=== PATIENT | female | born 1945 | race Two or more races ===

== ENCOUNTER 2022-05-03 19:24 | Emergency (ER) | payer MEDICARE, OTHER ==
[~2022-05-03] VITALS: Ht 162.6 cm; Wt 64.9 kg
--- NOTE | 2022-05-03 19:45 | NUR ---
CALLED TO TRIAGE NO ANSWER
--- NOTE | 2022-05-03 20:00 | NUR ---
CALLED TO TRIAGE NO ANSWER
[2022-05-03 20:38] VITALS: BP 124/70
--- NOTE | 2022-05-03 20:40 | NUR ---
BIBPA FROM CUSTODIAL C/O FEELING WEAK, AND POOR PO INTAKE FOR THE PAST FEW DAYS. PLACED COMFORTABLY IN BED. VITALS CHECKED.
[2022-05-03 21:14] LABS: BASOPHILS % (AUTO) 0.4 % (0.0-2.0); EOSINOPHILS % (AUTO) 1.1 % (0.0-6.0); HEMATOCRIT 36 % (33-45); HEMOGLOBIN 11.6 g/dL (11.5-14.8); LYMPHOCYTES % (AUTO) 36.2 % (20.0-44.0); MEAN CORPUSCULAR HGB CONC 32 g/dl (31.0-36.0); MEAN CORPUSCULAR VOLUME 83 fL (82-100); MONOCYTES # (AUTO) 0.6 K/uL (0.1-1.30); MONOCYTES % (AUTO) 6.9 % (2.0-12.0); NEUTROPHILS # (AUTO) 4.5 K/uL (1.8-8.9); NEUTROPHILS % (AUTO) 55.4 % (43.0-81.0); PLATELET COUNT (AUTO) 231 K/uL (150-450); RED BLOOD CELL COUNT(AUTO) 4.35 MIL/uL (4.0-5.2); WHITE BLOOD COUNT (AUTO) 8.2 K/uL (4.3-11.0)
--- NOTE | 2022-05-03 21:14 | NUR ---
URINE SPECIMEN SENT TO LAB.
[2022-05-03 21:28] LABS: ALBUMIN 3.7 g/dL (3.4-5.0); BILIRUBIN,DIRECT 0.1 mg/dL (0.0-0.2); BILIRUBIN,TOTAL 0.2 mg/dL (0.2-1.0); CALCIUM, SERUM 9.4 mg/dL (8.5-10.1); CREATININE 0.8 mg/dL (0.6-1.3); POTASSIUM 4.2 mmol/L (3.5-5.1); TOTAL PROTEIN, SERUM 7.9 g/dL (6.4-8.2)
[2022-05-03 21:58] LABS: BILIRUBIN,URINE NEGATIVE (NEGATIVE); COLOR,URINE YELLOW (YELLOW); LEUKOCYTE ESTERASE ,URINE SMALL (NEGATIVE); NITRITE, URINE NEGATIVE (NEGATIVE); PH,URINE 6.5 (5.0-8.0); PROTEIN,URINE NEGATIVE (NEGATIVE); UGLUCOSE NEGATIVE (NEGATIVE); UROBILINOGEN,URINE 0.2 EU/dL (0.2)
[2022-05-03 22:04] LABS: BACTERIA,URINE 1+ /HPF (None Seen); RBC,URINE 0-2 /HPF (0-2); SQUAMOUS EPITHELIAL CELL,UR 0-2 /HPF (None Seen)
[2022-05-03] MEDS ORDERED: SULF1TAB48 PO (22:10)
--- NOTE | 2022-05-03 22:34 | NUR ---
[address] [place] [address] [phone]
--- NOTE | 2022-05-03 22:36 | NUR ---
[facility] CALLED FOR BLS BACK HOME PER BENJAMÍN ETA - 1 HOUR
--- NOTE | 2022-05-03 23:05 | NUR ---
CALLED LONG TERM SPOKE WITH DEMETRA, FACILITY DOES NOT WANT TO ACCEPT PT BACK, WANTS MD TO SPEAK TO ADMIN.
--- NOTE | 2022-05-04 00:13 | NUR ---
PATIENT TO BE TAKEN BACK TO FACITILY
--- NOTE | 2022-05-04 00:55 | NUR ---
REPORT GIVEN TO EMT [facility] [address]
--- NOTE | 2022-05-04 00:56 | NUR ---
IV CANNULA REMOVED.
--- NOTE | 2022-05-04 00:57 | NUR ---
Patient discharged to home in stable condition. Written and verbal after care instructions given. Patient verbalizes understanding of instruction.
== END 2022-05-04 01:26 ==
LOC: ER 19:30
DX: R53.1 Weakness (principal); R51.9 Headache, unspecified; R42 Dizziness and giddiness; E11.9 Type 2 diabetes mellitus without complications; Z79.899 Other long term (current) drug therapy
CPT/HCPCS: 36415; 70450-TC; 71045-TC; 80048-TC; 80076-TC; 81001; 84484-TC; 85025-TC; 87086-TC

== ENCOUNTER 2024-04-22 19:43 | Inpatient (IN) | payer MEDICARE, OTHER ==
[~2024-04-22] VITALS: Ht 160 cm; Wt 76.7 kg
[~2024-04-22 19:43] MED LIST: SULF1TAB48 PO
--- NOTE | 2024-04-22 20:05 | NUR ---
CALLED FOR TRIAGE. NO ANSWER
[2024-04-22 20:06] LABS: BASOPHILS % (AUTO) 0.4 % (0.0-2.0); EOSINOPHILS % (AUTO) 0.1 % (0.0-6.0); HEMATOCRIT 33 % (33-45); HEMOGLOBIN 10.6 g/dL (11.5-14.8); LYMPHOCYTES # (AUTO) 1.2 K/uL (0.8-4.8); LYMPHOCYTES % (AUTO) 9.6 % (20.0-44.0); MEAN CORPUSCULAR HEMOGLOBIN 28 PG (26.0-33.0); MEAN CORPUSCULAR HGB CONC 32 g/dl (31.0-36.0); MEAN CORPUSCULAR VOLUME 88 fL (82-100); MONOCYTES # (AUTO) 0.9 K/uL (0.1-1.30); MONOCYTES % (AUTO) 7.8 % (2.0-12.0); NEUTROPHILS # (AUTO) 9.8 K/uL (1.8-8.9); NEUTROPHILS % (AUTO) 82.1 % (43.0-81.0); PLATELET COUNT (AUTO) 187 K/uL (150-450); RED BLOOD CELL COUNT(AUTO) 3.75 MIL/uL (4.0-5.2); RED CELL DISTRIBUTION WIDTH 15.5 % (11.5-15.0)
[2024-04-22 20:14] LABS: CALCIUM, SERUM 9.5 mg/dL (8.5-10.1); CARBON DIOXIDE 25 mmol/L (21-32); CHLORIDE 95 mmol/L (98-107); CREATININE 1.2 mg/dL (0.6-1.3); GLUCOSE 330 mg/dL (74-106); POTASSIUM 4.5 mmol/L (3.5-5.1); SODIUM SERUM 130 mmol/L (136-145); UREA NITROGEN, BLOOD 41 mg/dL (7-18)
[2024-04-22 20:19] LABS: ALANINE AMINOTRANSFERASE 22 U/L (12-78); ALBUMIN 3.7 g/dL (3.4-5.0); ALKALINE PHOSPHATASE 84 U/L (46-116); ASPARTATE AMINOTRANSFERASE 14 U/L (15-37); BILIRUBIN,DIRECT 0.1 mg/dL (0.0-0.2); BILIRUBIN,TOTAL 0.6 mg/dL (0.2-1.0); TOTAL PROTEIN, SERUM 7.4 g/dL (6.4-8.2)
--- NOTE | 2024-04-22 20:44 | NUR ---
BIBDAUGHTER FRM GOLDEN, C/O L HIP PAIN S/P FALL YESTERDAY. L ARM SLING PRESENT ON ARRIVAL. PT IS ALERT AND ORIENTED. RR EVEN AND NON LABORED. NOT AMBULATORY DUE TO HIP PAIN, UNABLE TO BEAR WEIGHT. CONNECTED TO POX AND HEART MONITOR. FAMILY AT BEDSIDE. FALL PRECAUTIONS IN PLACE
--- NOTE | 2024-04-22 20:46 | NUR ---
TECH AT BEDSIDE FOR EKG
--- NOTE | 2024-04-22 20:58 | NUR ---
X RAY AT BEDSIDE
[2024-04-22] MEDS ORDERED: DEXTROSE 50%-WATER 50 ML DISP.SYRIN IV PRN (21:00)
[2024-04-22] MEDS ORDERED: HYDROCODONE/APAP 10/325MG TABLET PO PRN (21:00)
[2024-04-22] MEDS ORDERED: MAG HYDROX/AL HYDROX/SIMETH 30 ML UDC PO PRN (21:00)
[2024-04-22] MEDS ORDERED: MAGNESIUM HYDROXIDE 30 ML UDC PO PRN (21:00)
[2024-04-22] MEDS ORDERED: ONDANSETRON HCL/PF 4 MG/2 ML VIAL IVP PRN (21:00)
--- NOTE | 2024-04-22 21:00 | NUR ---
304 BED 1
--- NOTE | 2024-04-22 21:18 | NUR ---
REPORT GIVEN TO WENDY NEVES
[2024-04-22 21:50] VITALS: BP 108/59; TEMP 98.2; O2SAT 97
--- NOTE | 2024-04-22 22:30 | NUR ---
MS RN ADMITTING NOTE PATIENT ARRIVED IN UNIT AT 2150H WITH EMT AND DAUGHTER. PATIENT IS A/O X 4, KITTITIAN SPEAKING BUT CAN UNDERSTAND BASIC LAO, DAUGHTER AT BEDSIDE HELPS WITH COMMUNICATION. ON 2LPM OXYGEN VIA NASAL CANNULA, BREATHING EVENLY AND NO DISTRESS NOTED. WITH IV ACCESS ON LEFT HAND G#22 SALINE LOCK. ORIENTED TO STAFF AND ROOM. VITAL SIGNS TAKEN AND RECORDED. PATIENT'S BELONGINGS ACCOUNTED FOR. PER DAUGHTER, PATIENT HAS NO WOUNDS SHE'S RELUCTANT TO DO SKIN ASSESSMENT SINCE PATIENT IS IN PAIN DURING MOVEMENT. NO VISIBLE WOUNDS NOTED. ENCOURAGED VERBALIZATION OF NEEDS. SAFETY AND FALL MEASURES IMPLEMENTED, BED LOCKED AND IN LOWEST POSITION, SIDE RAILS UP X 2, CALL LIGHT AND TABLE WITHIN REACH, HOB ELEVATED, BED ALARM ON. WILL CONTINUE PLAN OF CARE
[2024-04-22] MEDS ORDERED: PANT20TA2 PO (22:45)
[2024-04-22] MEDS ORDERED: EMPA25TA PO (22:45)
[2024-04-22] MEDS ORDERED: SITA1TAB2 PO (22:45)
[2024-04-22] MEDS ORDERED: TRAM50TA2 PO (22:45)
[2024-04-22] MEDS ORDERED: METF-440 PO (22:45)
[2024-04-22] MEDS ORDERED: LISI2.5T2 PO (22:45)
[2024-04-22] MEDS ORDERED: OXYB-58 PO (22:45)
[2024-04-22] MEDS ORDERED: Myrbetriq PO (22:45)
[2024-04-22] MEDS ORDERED: GLIP10TA11 PO (22:45)
[2024-04-22] MEDS ORDERED: ALBU8.5H8 INH (22:45)
[2024-04-22] MEDS ORDERED: ATOR20TA PO (22:45)
[2024-04-22] MEDS ORDERED: FERR325T24 PO (22:45)
[2024-04-22] MEDS ORDERED: GABA-532 PO (22:45)
[2024-04-22] MEDS ORDERED: VORI200T4 PO (22:45)
[2024-04-22] MEDS ORDERED: VENL150C58 PO (22:45)
[2024-04-22] MEDS ORDERED: INSU100I26 SQ (22:45)
[2024-04-22] MEDS ORDERED: APIX2.5T PO (22:45)
--- NOTE | 2024-04-22 22:55 | NUR ---
MS RN NOTE CALLED SAMUEL TIJERINA AT [facility] AND SPOKE WITH [employer] TO FAX OVER PATIENT'S MEDICATION LIST AND POLST.
[2024-04-22] MEDS: BLOOD SUGAR DIAGNOSTIC 1 EACH STRIP IN SCH (23:00)
[2024-04-22] MEDS: IV NS 0.9% 1,000 ML IV SCH (23:16)
[2024-04-22] MEDS: INSULIN REGULAR, HUMAN 100 UNIT/ML 3 ML VIAL SQ PRN (23:21)
[2024-04-22] MEDS ORDERED: ALBUTEROL FS 2.5 MG/3 ML VIAL.NEB IH PRN (23:45)
[2024-04-23] MEDS: HYDROCODONE/APAP 5/325MG TABLET PO PRN (03:17)
--- NOTE | 2024-04-23 03:35 | NUR ---
MS RN NOTE PATIENT COMPLAINED OF PAIN ON HER LEFT HIP WITH A SCORE OF 6/10. NORCO 5 PO PRN GIVEN AT 0317H. PATIENT TOLERATED WELL
[2024-04-23] MEDS: GABAPENTIN 300 MG CAPSULE PO SCH (05:13)
--- NOTE | 2024-04-23 06:55 | NUR ---
MS RN CLOSING NOTE PATIENT IS A/O X 4, ENGLISH SPEAKING BUT CAN UNDERSTAND BASIC BELARUSIAN, STABLE ON 2LPM OXYGEN VIA NASAL CANNULA, BREATHING EVENLY AND NO DISTRESS NOTED. WITH IV ACCESS ON LEFT HAND G#22 INFUSING WITH NORMAL SALINE AT 250ML/HR. ADMINISTERED MEDICATIONS PRESCRIBED. NEEDS ATTENDED. NO COMPLAINTS OF PAIN AND DISCOMFORT AT THIS TIME. LEFT ARM MAINTAINED ON SLING FOR IMMOBILIZATION. SAFETY AND FALL MEASURES IMPLEMENTED, BED LOCKED AND IN LOWEST POSITION, SIDE RAILS UP X 2, CALL LIGHT AND TABLE WITHIN REACH, HOB ELEVATED, BED ALARM ON. WILL ENDORSE TO AM NURSE FOR BORIS
[2024-04-23 07:13] LABS: BASOPHILS % (AUTO) 0.2 % (0.0-2.0); EOSINOPHILS % (AUTO) 0.2 % (0.0-6.0); HEMATOCRIT 25 % (33-45); HEMOGLOBIN 8.3 g/dL (11.5-14.8); LYMPHOCYTES # (AUTO) 1.4 K/uL (0.8-4.8); LYMPHOCYTES % (AUTO) 15.5 % (20.0-44.0); MEAN CORPUSCULAR HEMOGLOBIN 29 PG (26.0-33.0); MEAN CORPUSCULAR HGB CONC 33 g/dl (31.0-36.0); MEAN CORPUSCULAR VOLUME 86 fL (82-100); MONOCYTES % (AUTO) 10.5 % (2.0-12.0); NEUTROPHILS # (AUTO) 6.9 K/uL (1.8-8.9); NEUTROPHILS % (AUTO) 73.6 % (43.0-81.0); PLATELET COUNT (AUTO) 121 K/uL (150-450); RED BLOOD CELL COUNT(AUTO) 2.93 MIL/uL (4.0-5.2); RED CELL DISTRIBUTION WIDTH 15.3 % (11.5-15.0); WHITE BLOOD COUNT (AUTO) 9.3 K/uL (4.3-11.0)
--- NOTE | 2024-04-23 07:21 | NUR ---
MS RN OPENING NOTES RECEIVED PATIENT IN BED, ASLEEP BUT EASY TO AWAKEN.A/O X4-TUNISIAN SPEAKING BUT CAN UNDERSTAND BASIC SYRIAC. ABLE TO MAKE NEEDS KNOWN. NO SIGNS OF ACUTE DISTRESS NOTED. ON O2 INHALATION VIA NASAL CANNULA AT 2LPM, TOLERATING WELL. NO SOB, BREATHING EVEN AND UNLABORED. WITH IV ACCESS ON RIGHT HAND #22G-INFUSING WELL WITH NORMAL SALINE AT 75CC/HOUR-INTACT AND PATENT. WITH PURE WICK ON ATTACHED TO SUCTION DRAINING YELLOW COLORED URINE. PATIENT DENIES PAIN AT THIS TIME. SAFETY MEASURES IN PLACE. BED IN LOW AND LOCKED POSITION. CALL LIGHT AND TABLE WITHIN EASY REACH. SIDE RAILS UP X2.WILL CONTINUE WITH PLAN OF CARE.
[2024-04-23 07:22] LABS: CALCIUM, SERUM 8.1 mg/dL (8.5-10.1); CARBON DIOXIDE 22 mmol/L (21-32); CHLORIDE 104 mmol/L (98-107); CREATININE 0.7 mg/dL (0.6-1.3); GLUCOSE 185 mg/dL (74-106); MAGNESIUM 1.9 mg/dL (1.8-2.4); POTASSIUM 3.6 mmol/L (3.5-5.1); SODIUM SERUM 137 mmol/L (136-145); UREA NITROGEN, BLOOD 41 mg/dL (7-18)
[2024-04-23 08:00] VITALS: BP 107/59; TEMP 98.6; O2SAT 97
[2024-04-23] MEDS ORDERED: Medication Not On Formulary EA ([Myrbetriq] 50 MG) PO SCH (09:00)
[2024-04-23] MEDS: PANTOPRAZOLE 40 MG VIAL IV SCH (09:17)
[2024-04-23] MEDS: ATORVASTATIN 10 MG TABLET PO SCH (09:17)
[2024-04-23] MEDS: FERROUS SULFATE (325 MG) 325 MG/TAB TABLET PO SCH (09:18)
[2024-04-23] MEDS: LISINOPRIL (5MG) 5 MG TABLET PO SCH (09:18)
[2024-04-23] MEDS: VENLAFAXINE XR 150 MG CAP.SR.24H PO SCH (09:18)
[2024-04-23] MEDS: APIXABAN 2.5 MG TABLET PO SCH (09:20)
[2024-04-23] MEDS: OXYBUTYNIN CHLORIDE ER 5 MG TAB PO SCH ×2 (09:32→11:43)
[2024-04-23] MEDS: EMPAGLIFLOZIN 25 MG TABLET PO SCH (09:32)
[2024-04-23] MEDS: VORICONAZOLE 200 MG TABLET PO SCH (09:32)
[2024-04-23 16:00] VITALS: BP 101/52; TEMP 98.6; O2SAT 96
--- NOTE | 2024-04-23 19:02 | NUR ---
MS RN CLOSING NOTES PATIENT IN BED, AWAKE AND WATCHING TV. A/O X4-PASHTO SPEAKING BUT CAN UNDERSTAND BASIC ALBANIAN. WAS ABLE TO MAKE NEEDS KNOWN. NO SIGNS OF ACUTE DISTRESS NOTED. ON O2 INHALATION VIA NASAL CANNULA AT 2LPM, TOLERATED WELL. NO SOB, BREATHING EVEN AND UNLABORED. WITH IV ACCESS ON RIGHT HAND #22G-INFUSING WELL WITH NORMAL SALINE AT 75CC/HOUR-INTACT AND PATENT. WITH PURE WICK ON ATTACHED TO SUCTION DRAINING YELLOW COLORED URINE(800CC). PATIENT DENIES PAIN AT THIS TIME. DUE MEDS GIVEN. NURSING CARE RENDERED. SAFETY MEASURES IMPLEMENTED. BED IN LOW AND LOCKED POSITION. CALL LIGHT AND TABLE WITHIN EASY REACH. SIDE RAILS UP X2.WILL ENDORSE TO SENIOR [employer] CONSULTANT NURSE FOR CONTINUITY OF CARE.
--- NOTE | 2024-04-23 19:05 | NUR ---
MS CHAI INITIAL NOTES RECEIVED REPORT FROM AM NURSE BECCA AND CHECKED THE PATIENT IN HER ROOM,PATIENT LYING ON BED ON SITTING POSITION WITH DAUGHTER AT BEDSIDE. PATIENT IS AWAKE, A/OX 3-4 BUT DAUGHTER SAID SOMETIMES SHE FORGOT WHERE SHE AT HEBREW SPEAKING BUT UNDERSTOOD SOME PANAMANIAN. ABLE TO MAKE NEED KNOWN. PATIENT ORIENTED TO ROOM AND CALL LIGHT SYSTEM. ON O2 AT 2LITERS VIA NASAL CANULA TOLERATING WELL. LUNGS CLEAR BILATERALLY UPON AUSCULTATION. BREATHING EVEN AND UNLABORED. NO SOB NOTED. NO COMPLAINTS OF PAIN AT THE MOMENT. WITH IV ACCESS ON RIGHT HAND #22G, PATENT INTACT AND FLUSHING WELL, INFUSING NS AT 75ML/HR. SKIN ASSESSMENT DONE, SKIN INTACT. BOWEL SOUNDS PRESENT . SAFETY PRECAUTIONS OBSERVED AND MAINTAINED. CALL LIGHT AND SIDE TABLE WITHIN REACH. WILL CONTINUE TO MONITORING.
[2024-04-23 20:23] VITALS: BP 115/60; TEMP 101; O2SAT 97
[2024-04-23] MEDS: ACETAMINOPHEN 325 MG TABLET PO PRN (20:48)
--- NOTE | 2024-04-23 20:52 | NUR ---
MS QUILTING MACHINE HELPER NOTES ROUTINE MEDICATION GIVEN AND TYLENOL 2 TABLETS FOR HER HIP AND LEFT ARM PAIN AND FEVER OF 101.8. 3 OF HER BLANKET REMOVED FOR A WHILE AND NOTICED ROOM TEMPERATURE IS WARM EVEN THE AIR CONDITION ON . NOTIFY ENGINEERING TO CHECK IT WELL. IVF OF NS AT 75ML/HR STILL INFUSING. WILL RE-CHECK IT LATER. DAUGHTER REMAIN AT THE BEDSIDE . WILL CONTINUE MONITORING.
--- NOTE | 2024-04-23 21:41 | NUR ---
MS CHAI NOTES -RE CHECK. Re- checked the patient temp and came out 99 .0 at this time,no signs of any discomfort noted at this time left arm on sling . just noticed patient having confusion patient daughter helped as to translate to the patient where she at now and why she have IV line on her right hand , patient understood well on Frisian . Kept her comfortable at all times. will continue monitoring.
[2024-04-23 22:01] VITALS: TEMP 99
--- NOTE | 2024-04-23 22:50 | NUR ---
MS BASIN TENDER NOTES Blood sugar checked 216, insulin 4 units given myriam SQ as ordered, no signs of hyper glycemia noted. Patient sleeping at this time, still with IVF of Ns at 75ml/hr . will continue monitoring.
--- NOTE | 2024-04-24 | NUR ---
MS HIMS CLERK NOTES PT SLEEPING COMFORTABLY IN BED WITHOUT ANY ACUTE DISTRESS OR ANY DISCOMFORT NOTED. IVF NS AT 75 ML/HR STILL INFUSING ON HER RIGHT HAND. KEPT HER WARM AND COMFORTABLE AT ALL TIMES. WILL CONTINUE MONITORING.
[2024-04-24 06:35] LABS: BASOPHILS % (AUTO) 0.4 % (0.0-2.0); EOSINOPHILS % (AUTO) 0.5 % (0.0-6.0); HEMATOCRIT 23 % (33-45); HEMOGLOBIN 7.7 g/dL (11.5-14.8); LYMPHOCYTES # (AUTO) 1.6 K/uL (0.8-4.8); LYMPHOCYTES % (AUTO) 18.5 % (20.0-44.0); MEAN CORPUSCULAR HEMOGLOBIN 29 PG (26.0-33.0); MEAN CORPUSCULAR HGB CONC 34 g/dl (31.0-36.0); MEAN CORPUSCULAR VOLUME 87 fL (82-100); MONOCYTES # (AUTO) 0.8 K/uL (0.1-1.30); MONOCYTES % (AUTO) 9.8 % (2.0-12.0); NEUTROPHILS % (AUTO) 70.8 % (43.0-81.0); PLATELET COUNT (AUTO) 111 K/uL (150-450); RED BLOOD CELL COUNT(AUTO) 2.64 MIL/uL (4.0-5.2); RED CELL DISTRIBUTION WIDTH 15.7 % (11.5-15.0); WHITE BLOOD COUNT (AUTO) 8.5 K/uL (4.3-11.0)
[2024-04-24 06:51] LABS: APPEARANCE,URINE CLEAR (CLEAR); BILIRUBIN,URINE NEGATIVE (NEGATIVE); BLOOD, URINE NEGATIVE Ery/uL (NEGATIVE); COLOR,URINE YELLOW (YELLOW); KETONES,URINE TRACE mg/dL (NEGATIVE); LEUKOCYTE ESTERASE ,URINE NEGATIVE (NEGATIVE); NITRITE, URINE NEGATIVE (NEGATIVE); PROTEIN,URINE NEGATIVE (NEGATIVE); UGLUCOSE 3+ mg/dL (NEGATIVE); UROBILINOGEN,URINE 0.2 EU/dL (0.2)
--- NOTE | 2024-04-24 06:55 | NUR ---
MS IMPLEMENTATION COORDINATOR CLOSING NOTES MORNING CARE DONE AND BLOOD SUGAR CHECKED WELL 204, INSULIN 4 UNITS GIVEN SUE SQ ORDERED. NO SIGNS OF HYPER GLYCEMIA NOTED. PATIENT SLEPT WELL AFTER PAIN MEDICATION GIVEN . NO SIGNS OF ANY DISCOMFORT NOTED AT THIS TIME. ALL DUE MEDS GIVEN AND ALL NEEDS MET . KEPT HER WARM AND COMFORTABLE AT ALL TIMES. BED IN LOW AND LOCK IN POSITION WITH SIDE RAILS X2 UP . CALL LIGHT AND TABLE AT REACH. WILL ENDORSE TO AM NURSE FOR CONTINUITY OF CARE.
[2024-04-24 07:00] LABS: ADD URINE CULTURE NO; BACTERIA,URINE Rare /HPF (None Seen); EOSINOPHIL,URINE None Seen; RBC,URINE 0-2 /HPF (0-2); SQUAMOUS EPITHELIAL CELL,UR Few /HPF (None Seen)
[2024-04-24 07:09] LABS: CALCIUM, SERUM 8.4 mg/dL (8.5-10.1); CARBON DIOXIDE 23 mmol/L (21-32); CHLORIDE 103 mmol/L (98-107); CREATININE 0.6 mg/dL (0.6-1.3); GLUCOSE 167 mg/dL (74-106); POTASSIUM 4.2 mmol/L (3.5-5.1); SODIUM SERUM 135 mmol/L (136-145); UREA NITROGEN, BLOOD 23 mg/dL (7-18)
[2024-04-24 07:27] LABS: CREATININE, URINE 31.7 MG/DL (30.0-125.0); URINE TOTAL PROTEIN 12.5 mg/dL (0-11.9)
[2024-04-24 07:30] VITALS: BP 110/51; TEMP 98.4; O2SAT 97
--- NOTE | 2024-04-24 09:34 | NUR ---
RN MS NOTES RECEIVED PATIENT IN BED, NOT IN ACUTE DISTRESS. WITH IV ACCESS #22 AT RIGHT HAND, NORMAL SALINE INFUSING WELL @ 75 CC/HR. REPORTS MILD PAIN AND WAS GIVEN TYLENOL 650 MG. NOT IN RESPIRATORY DISTRESS, IN ROOM AIR. SAFETY MEASURES IN PLACE.
[2024-04-24 10:10] VITALS: BP 139/76; TEMP 99.1; O2SAT 96
--- NOTE | 2024-04-24 10:10 | NUR ---
EDINSON MS NOTES PT NOTED TO BE DESATURATING, O2 SAT AT 86% ON 4L VIA NASAL CANULA, NOT IN DISTRESS, HR GOES UP TO I20'S, BP 139/76, TEMP OF 99.1, PLACED ON SIMPLE MASK AT 10LPM, O2 SAT AT 88%, PT SUCTIONED BY RT WITH MINIMAL SECRETIONS, PLACED ON NON REBREATHER MASK AT 15LPM, O2 SAT IMPROVED TO 98%, PLACED ON TEMPORARY TELE MONITORING, WITH HR OF 120 [address], DR. MORFIN INFORMED, MONITORED PT CLOSELY. Addendum: 04/24/24 at 1502 by VICTORINA KELLY RN PLEASE DISREGARD ABOVE NOTE, DOCUMENTATION FOR ANOTHER PATIENT.
[2024-04-24] MEDS: IV NS 0.9% 1,000 ML IV PRN (14:17)
[2024-04-24 16:00] VITALS: BP 103/52; TEMP 99.5; O2SAT 94
--- NOTE | 2024-04-24 18:24 | NUR ---
RN CLOSING NOTES (MS) PT IS ALERT AND ORIENTED. ONLY SPEAKS UKRAINIAN BUT CAN UNDERSTAND BASIC LUXEMBOURGISH. PATIENT IS STABLE, NOT IN RESPIRATORY DISTRESS, IN ROOM AIR. PT WITH IV ACCESS ON THE RIGHT HAND G#22, NORMAL SALINE INFUSING WELL AT 75 MLS/HR. NO COMPLAINTS OF PAIN OR DISCOMFORT. LEFT ARM MAINTAINED ON SLING FOR IMMOBILIZATION. SAFE AND FALL MEASURES IMPLEMENTED. WILL ENDORSE TO NURSE ON CASE RESOURCE MANAGER FOR CONTINUITY OF CARE.
--- NOTE | 2024-04-24 19:05 | NUR ---
MS RN OPENING NOTES RECEIVED PATIENT AWAKE IN BED, WATCHING TV. RELAX AND COMFORTABLE WITH DAUGHTER AT BEDSIDE. A&O X 3, VIETNAMESE SPEAKING BUT UNDERSTANDS LIMITED TONGAN AND ABLE TO MAKE NEEDS KNOWN. ON O2 VIA NASAL CANNULA @ 2LPM, TOLERATING WELL, BREATHING EVENLY AND UNLABORED WITH SPO2 OF 99%. NO SIGNS OF ACUTE DISTRESS NOTED. PATIENT DENIES ANY , DIZZINESS, OR SOB. WITH IV ACCESS ON RIGHT HAND G#22 - SL PATENT, INTACT, AND FLUSHES WELL WITH NO S/SX OF INFILTRATION NOTED. ON PUREWICK, DRAINING CLEAR YELLOW OUTPUT. HAS A LEFT ARM SLING, NOTED LEFT ARM BRUISE AND WARM TO TOUCH. FALL AND SAFETY MEASURES ARE IN PLACE: CALL LIGHT AND TABLE WITHIN EASY REACH, SIDE RAILS UP X 2, BED LOCKED IN LOWEST POSITION, HOB ELEVATED, BED ALARM ON. PLAN OF CARE ONGOING.
[2024-04-24 20:00] VITALS: BP 114/63; TEMP 99.7; O2SAT 100
[2024-04-25 06:31] LABS: BASOPHILS % (AUTO) 0.4 % (0.0-2.0); EOSINOPHILS # (AUTO) 0.1 K/uL (0.0-0.7); EOSINOPHILS % (AUTO) 1.1 % (0.0-6.0); HEMATOCRIT 23 % (33-45); HEMOGLOBIN 7.7 g/dL (11.5-14.8); LYMPHOCYTES # (AUTO) 1.5 K/uL (0.8-4.8); MEAN CORPUSCULAR HEMOGLOBIN 29 PG (26.0-33.0); MEAN CORPUSCULAR HGB CONC 33 g/dl (31.0-36.0); MEAN CORPUSCULAR VOLUME 87 fL (82-100); MONOCYTES # (AUTO) 0.5 K/uL (0.1-1.30); MONOCYTES % (AUTO) 8.6 % (2.0-12.0); NEUTROPHILS # (AUTO) 4.2 K/uL (1.8-8.9); NEUTROPHILS % (AUTO) 65.9 % (43.0-81.0); PLATELET COUNT (AUTO) 125 K/uL (150-450); RED BLOOD CELL COUNT(AUTO) 2.67 MIL/uL (4.0-5.2); RED CELL DISTRIBUTION WIDTH 15.7 % (11.5-15.0); WHITE BLOOD COUNT (AUTO) 6.4 K/uL (4.3-11.0)
[2024-04-25 06:59] LABS: CALCIUM, SERUM 8.2 mg/dL (8.5-10.1); CARBON DIOXIDE 26 mmol/L (21-32); CHLORIDE 107 mmol/L (98-107); CREATININE 0.6 mg/dL (0.6-1.3); GLUCOSE 103 mg/dL (74-106); POTASSIUM 4.1 mmol/L (3.5-5.1); SODIUM SERUM 140 mmol/L (136-145); UREA NITROGEN, BLOOD 13 mg/dL (7-18)
--- NOTE | 2024-04-25 07:00 | NUR ---
MS RN CLOSING NOTES PATIENT AWAKE IN BED. A&O X 3, DIVEHI SPEAKING BUT UNDERSTANDS LIMITED SWEDISH AND ABLE TO MAKE NEEDS KNOWN. ON O2 VIA NASAL CANNULA @ 2LPM, TOLERATING WELL, BREATHING EVENLY AND UNLABORED WITH SPO2 OF 98%. NO SIGNS OF ACUTE DISTRESS NOTED. PATIENT DENIES ANY PAIN OR ANY DISCOMFORTS AT THIS TIME. PATIENT DENIES ANY , DIZZINESS, OR SOB. WITH IV ACCESS ON RIGHT HAND G#22 - SL PATENT, INTACT, AND FLUSHES WELL WITH NO S/SX OF INFILTRATION NOTED. ON PUREWICK, DRAINING CLEAR YELLOW OUTPUT. KEPT PATIENT CLEAN AND COMFORTABLE. ALL DUE MEDS GIVEN. FALL AND SAFETY MEASURES ARE IN PLACE: CALL LIGHT AND TABLE WITHIN EASY REACH, SIDE RAILS UP X 2, BED LOCKED IN LOWEST POSITION, HOB ELEVATED, BED ALARM ON. ENDORSED TO DAY SHIFT NURSE FOR BORIS.
--- NOTE | 2024-04-25 07:30 | NUR ---
RN OPENING NOTE PATIENT ASLEEP IN BED RESTING. APPEARS COMFORTABLE. AWAKENS TO VERBAL STIMULI. A/OX3, LITHUANIAN SPEAKER, UNDERSTAND A LITTLE STATELESS. NO S/SX OF PAIN NOTED AT THIS TIME. ON 2L OF O2 VIA NC, SATS 96%, SWITCHED TO ROOM AIR, WILL CONTINUE TO MONITOR. PATIENT WITH LEFT ARM IN A SLING TO IMMOBILIZE. WITH IV ACCESS ON RIGHT HAND G22, PATENT INTACT AND FLUSHING WELL. WITH IVF OF NS RUNNING AT 75ML/HR, INFUSING WELL. PATIENT ON PUREWICK SYSTEM DRAINING CLEAR YELLOW URINE. FALL AND SAFETY MEASURES IN PLACE. BED ALARM ON. BED IN LOW AND LOCKED POSITION. CALL LIGHT AND SIDE TABLE WITHIN EASY REACH. SIDE RAILS UP X3. WILL CONTINUE TO MONITOR.
[2024-04-25 08:00] VITALS: BP 114/66; TEMP 98.1; O2SAT 96
[2024-04-25] MEDS: PANTOPRAZOLE 40 MG TABLET.DR PO SCH (09:00)
--- NOTE | 2024-04-25 11:45 | NUR ---
RN NOTE PATIENT BLOOD SUGAR AC LUNCH IS 131, PATIENT REFUSED INSULIN COVERAGE.
[2024-04-25] MEDS ORDERED: HYDR-3980 PO (13:21)
--- NOTE | 2024-04-25 14:14 | NUR ---
RN NOTE PATIENT IN PAIN WITH EVERY MOVEMENT, HAD TO BE REPOSITIONED. FACIAL GRIMACE, MOANING NOTED. REQUESTED TYLENOL FOR PAIN, SYSTEM VALIDATION ENGINEER OFFERED NORCO OR SOMETHING STRONGER. PATIENT SAID HER PREFERENCE IS TYLENOL. TYLENOL 650MG PO PRN GIVEN PER EMAR.
[2024-04-25 16:00] VITALS: BP 115/59; TEMP 98.2; O2SAT 96
--- NOTE | 2024-04-25 17:45 | NUR ---
BAND MASTER NOTE PATIENT DISCHARGED IN STABLE MEDICAL CONDITION. A/OX3, BELARUSIAN SPEAKING. V/S TAKEN AND RECORDED FF:bp 112/56, hr 89, rr 18, TEMP 98.1, SATS 94% ON RA. IV ACCESS TAKEN OUT. NAME ARM BAND REMOVED. SKIN ASSESSMENT DONE, BRUISE NOTED ON INNER LEFT UPPER ARM, UNABLE TO TAKE PICTURE, PATIENT IN PAIN WHEN REPOSITIONING. ALL BELONGINGS CHECKED AND BELONGINGS LIST SIGNED BY 2 WITNESSES. PATIENT SAID SHE IS UNABLE TO SIGN. HEALTH TEACHING AND DISCHARGE INSTRUCTION GIVEN AND VERBALIZED UNDERSTANDING. INSTRUCTED PATIENT TO MAKE AN APPOINTMENT WITH PRIMARY DOCTOR. DISCUSSED PRESCRIPTIONS WITH PATIENT. INSTRUCTED PATIENT TO CALL 911 OR GO TO THE NEAREST ER IN CASE OF EMERGENCY. REPORT GIVEN TO JACQUES NEVES ([phone]) FROM [facility]. PATIENT LEFT UNIT VIA GURNEY WITH NO SIGNS OF DISTRESS, ACCOMPANIED BY AMBULANCE CREW. CHARGE NURSE AWARE OF DISCHARGE.
== END 2024-04-25 17:55 | DRG 535 ==
LOC: ER 19:52 → MED 21:11
PROVIDERS: ATTEND Nurse Practitioner Acute Care
DX: S32.810A Multiple fractures of pelvis with stable disruption of pelvic ring, initial encounter for closed fracture (principal); J96.01 Acute respiratory failure with hypoxia; N17.0 Acute kidney failure with tubular necrosis; S42.302A Unspecified fracture of shaft of humerus, left arm, initial encounter for closed fracture; E87.1 Hypo-osmolality and hyponatremia; D62 Acute posthemorrhagic anemia; M86.9 Osteomyelitis, unspecified; R62.7 Adult failure to thrive; E86.0 Dehydration; W19.XXXA Unspecified fall, initial encounter; Y92.099 Unspecified place in other non-institutional residence as the place of occurrence of the external cause; G31.83 Neurocognitive disorder with Lewy bodies; F02.80 Dementia in other diseases classified elsewhere, unspecified severity, without behavioral disturbance, psychotic disturbance, mood disturbance, and anxiety; E11.69 Type 2 diabetes mellitus with other specified complication; R29.6 Repeated falls; Z91.81 History of falling; M89.8X9 Other specified disorders of bone, unspecified site; J44.9 Chronic obstructive pulmonary disease, unspecified; E78.5 Hyperlipidemia, unspecified; Z87.891 Personal history of nicotine dependence; D72.829 Elevated white blood cell count, unspecified; E86.9 Volume depletion, unspecified
CPT/HCPCS: 36415; 71045-TC; 73700-TC; 80048-TC; 80076-TC; 81001; 82570-TC; 82962-TC; 83735-TC; 84100-TC; 84300-TC; 85025-TC; 87086-TC; 97110-TC; 97112-TC; 97530-TC; A4223; A4565; G0378; J1815; J2470; J3490; J7030